=== PATIENT | female | born 1960 | race Caucasian/White ===

== ENCOUNTER 2016-04-18 10:45 | Day surgery (SDC) | payer OTHER ==
[2014-10-04 17:53] VITALS: BP 132/84
[~2016-04-18 10:45] MED LIST: LACTATED RINGERS 1,000 ML IV.SOLN IV ONE; LIDOCAINE HCL/PF 2% 100 MG/5 ML VIAL IJ ONE; PROPOFOL 200 MG/20 ML VIAL IV ONE; SALINE FLUSH 10 ML DISP.SYRIN IVF ONE
--- NOTE | 2016-04-18 12:39 | GI Report ---
REFERRING PHYSICIAN: Dr. Lolita May AERODYNAMICS ENGINEER: Roderick Gauthier MD PROCEDURE MEDICATION: Propofol as per anesthesia. INDICATIONS: This 56-year-old woman was referred for a screening. This is her first colonoscopy. She denies any changes in her stools or blood in the stool. She denies a family history of colorectal cancer. PROCEDURE PERFORMED: Colonoscopy. PROCEDURE: An Olympus video colonoscope was advanced into the rectum. She did have a fairly atonic redundant colon. It took some nurse compression and reducing loops to finally reach the cecum. The appendiceal orifice and terminal ileum were normal. On slow withdrawal, the cecum, ascending colon, and transverse colon with no obvious intraluminal lesions noted but a lot of redundancy. Descending colon and sigmoid colon, again, a lot of redundancy, no obvious intraluminal lesions noted. Retroflexion of the rectum was normal. The patient tolerated the procedure well. FINDINGS: An atonic redundant colon, but otherwise normal to the cecum. RECOMMENDATIONS: 1. I would increase fiber or supplements, such as Benefiber, Metamucil, etc. or MiraLAX if needed. 2. Consider re-looking at her colon in 10 years, sooner if clinically indicated. cc: Dr. Lolita BLACK
== END 2016-04-18 10:46 ==
LOC: OPSURG 10:45
PROVIDERS: ATTEND Internal Medicine Gastroenterology
DX: Z12.11 Encounter for screening for malignant neoplasm of colon (principal)
CPT/HCPCS: J2001; J2704; J7120; G0121; S1016

== ENCOUNTER 2016-07-04 17:10 | Outpatient (CLI) | payer OTHER ==
[2014-10-04 17:53] VITALS: BP 132/84
[2016-07-04 17:48] LABS: BASOPHILS % 0.4 (0.0-1.5); EOSINOPHILS % 1.3 % (0.0-6.8); MEAN CORPUSCULAR HEMOGLOBIN 30.9 pg (28.0-34.0); MEAN CORPUSCULAR VOLUME 95.3 fl (80.0-100.0); MONOCYTES % 3.8 % (0.0-11.0); NEUTROPHILS # 3.7 # k/uL (1.4-7.7)
[2016-07-04 18:05] LABS: eGFR (African) > 60; eGFR (Non-African) > 60
--- NOTE | 2016-07-04 18:36 | Diagnostic Imaging Report ---
[facility] [address] [facility].[address] [address] Report Submission Date: Jul 04, 2016 6:29:08 PM CDT Patient Study Name: WEI MILLS Date: Jul 04, 2016 6:07:27 PM CDT Modality Type: CT\SR Gender: F Description: CT ABD & PELVIS W/ CON : 60 Institution: [facility] Physician: ERNIE PERKINS - GARRY Computed tomography of the abdomen and pelvis with contrast History: Right lower quadrant pain for 2 days Findings: Transverse abdomen and pelvis sections are obtained after 89 mL intravenous omnipaque 350. The gallbladder is partially contracted. The liver, lung bases, spleen, pancreas , adrenals kidneys, great vessels, and mesenteric structures are normal. Moderate colonic stool is present. Bilateral L5 pars defects and grade I L5/S1 spondylolisthesis are observed. Bowel loops exhibit normal caliber and wall thickness. No acute abdomen abnormality is observed. Lumbar facet arthropathy is noted. Pelvic sections reveal moderate sigmoid colon stool, hysterectomy, partial urinary bladder decompression, and normal appendix. No acute pelvic abnormality is observed. Impression: 1. Mild constipation. 2. Normal appendix. 3. Chronic grade I lytic L5/S1 spondylolisthesis. 4. Hysterectomy. 5. No acute inflammatory process observed. Electronically signed on Jul 04, 2016 6:29:08 PM CDT by: Jorge Alberto BLACK
== END 2016-07-04 17:11 ==
LOC: RAD 17:10
PROVIDERS: ATTEND Family Medicine
DX: R10.31 Right lower quadrant pain (principal)
CPT/HCPCS: 74177; 80053; 82150; 85025; Q9966

== ENCOUNTER 2016-09-12 10:34 | Outpatient (CLI) | payer OTHER ==
[2014-10-04 17:53] VITALS: BP 132/84
--- NOTE | 2016-09-12 11:38 | Diagnostic Imaging Report ---
[facility] [address] [facility].[address] [address] Report Submission Date: Sep 12, 2016 11:32:51 AM CDT Patient Study Name: WEI MILLS Date: Sep 12, 2016 10:46:56 AM CDT Modality Type: CR Gender: F Description: LOWER EXTREMITY : 60 Institution: [facility] Physician: DIEGO BELL - OP 3 total views of both knees History: BILATERAL STANDING KNEES. PAIN WORSE IN RIGHT KNEE. PAIN WHEN WALKING, ESPECIALLY GOING UP AND DOWN STAIRS The of the findings: Comparison study dated November 18, 2014 No evidence of acute fracture or dislocation both knees. Joint spaces are preserved No suprapatellar effusion. Impression: No evidence of acute fracture or dislocation. No periosteal reaction Joint spaces are preserved. No suprapatellar effusion. Electronically signed on Sep 12, 2016 11:32:51 AM CDT by: Katia BLACK
== END 2016-09-12 10:35 ==
LOC: RAD 10:34
PROVIDERS: ATTEND Family Medicine
DX: M25.561 Pain in right knee (principal)

== ENCOUNTER 2017-04-09 19:44 | Emergency (ER) | payer OTHER ==
[2017-04-09] MEDS ORDERED: SULFAMETHOXAZOLE/TRIMETHOPRIM 1 EACH TABLET PO ONE (20:11)
--- NOTE | 2017-04-09 20:26 | ED Physician Documentation ---
General Adult - HISTORIAN Historian: patient - HPI Stated Complaint: sciatica pain Chief Complaint: General Adult Onset: hours Timing: still present Severity: moderate Further Comments: yes (Pt is a 57 yo female with hx back pain/sciatica. Pt has had recurrent episodes of this. Pt did not have an acute event, but pain has been increasing in the R side of her lower back over the course of the day. Pt has not taken any meds at home for this, although she has Meloxicam other meds.) - ROS CONST: no problems EYES/ENT: none CVS/RESP: none GI/: none MS/SKIN/LYMPH: other (back pain) - PAST HX Past History: other (sciatica, migaine) Surgeries/Procedures: other (ortho surgery) Allergies/Adverse Reactions: Allergies Allergy/AdvReac Type Severity Reaction Status Date / Time No Known Allergies Allergy Verified 04/09/17 19:57 Home Medications: Ambulatory Orders Medication Instructions Recorded Topiramate 50 mg PO BID 10/04/14 Rizatriptan Benzoate [Rizatriptan] 10 mg PO 1T PRN u2 03/20/15 Amitriptyline HCl 50 mg PO QDAY 04/09/17 - SOCIAL HX Smoking History: non-smoker - FAMILY HX Family History: No - VITAL SIGNS Vital Signs: Vital Signs Temp Pulse Resp BP Pulse Ox 88 16 129/84 99 04/09/17 19:45 04/09/17 19:45 04/09/17 19:45 04/09/17 19:45 - REVIEWED ASSESSMENTS Nursing Assessment Reviewed: Yes Vitals Reviewed: Yes Progress - Progress Progress: Toradol 60 mg IM Diazepam 10 mg IM improved Rx Flexeril 10 mg. 1 po q 8 h prn # 30. Continue other home meds. ED Results Lab/Radiology - Orders Orders: ED Orders Category Date Time Status Diazepam [Valium] Med 04/09/17 20:25 Discontinued 10 mg IM NOW ONE Ketorolac Tromethamine [Toradol] Med 04/09/17 20:25 Discontinued 60 mg IM NOW ONE Sulfamethoxazole/Trimethoprim [Bactrim Ds] Med 04/09/17 20:11 Discontinued 1 each PO NOW ONE General Adult Physical Exam - PHYSICAL EXAM GENERAL APPEARANCE: moderate distress NECK: normal inspection, supple RESPIRATORY: no resp distress, chest non-tender, breath sounds normal CVS: reg rate & rhythm, heart sounds normal BACK: normal inspection, no CVA tenderness, other (tenderness, muscle spasm, R lower back; no central pain (no pain over spine).) SKIN: warm/dry, normal color EXTREMITIES: non-tender, normal range of motion NEURO: oriented X3, motor nml, sensation nml, other (DTR's wnl) Discharge Clincal Impression: back pain Referrals: Lolita May MD [Primary Care Provider] - Condition: Good Disposition: 01 HOME, SELF-CARE Decision to Admit: NO Decision Time: 22:00
[2017-04-09] MEDS: KETOROLAC TROMETHAMINE 60 MG/2 ML VIAL IM ONE (20:40)
[2017-04-09] MEDS: (BACK ORDERED; DO NOT ORDER) DIAZEPAM 5 MG/ML DISP.SYRIN IM ONE (21:15)
[2017-04-09 22:48] VITALS: BP 133/77
== END 2017-04-09 22:00 | disposition home or self-care (01) ==
LOC: ED 19:44
DX: M54.30 Sciatica, unspecified side (principal)
CPT/HCPCS: 96372; 99283; J1885; J3360

== ENCOUNTER 2017-06-09 18:52 | Emergency (ER) | payer OTHER ==
--- NOTE | 2017-06-09 18:57 | ED Physician Documentation ---
Chest Pain - HISTORIAN Historian: patient - HPI Stated Complaint: cough and chest pain/ low grade fever Chief Complaint: General Adult Onset: days ago (2) Timing: other (started two days ago on and off with cough then resulting in chest pain ) Duration: waxing, waning Last known Well Date: 06/05/17 Last Known Well Time: 08:00 Last known Well Code/Unknown Code: Unknown Context: other (when she lays down the cough seems worse ) Severity: mild Quality: other (just a "pain" after coughing) Chest Pain Radiation: no radiation Chest Pain Signs/Symptoms: diaphoresis, dyspnea (after cough ). denies: nausea , vomiting, dizziness, palpitations Worsened By: other (cough ) Relieved By: nothing Further Comments: yes (She states there has been significant illness at work. She notes two days ago she started to have a cough and now feels she has a fever at work was 99.9. She has had congestion. She has not tried any OTC meds for this. She does not smoke although does smoke in the house.) - ROS CONST: fever MS/LYMPH: none GI/: none EYES/ENT: none SKIN/ENDO: denies: rash NEURO/PSYCH: headache (she has had a migraine for the last two days ) - PAST HX HI risk factors: other (migraine and leg pain ) DVT/PE Risk Factors: none TAD/AAA risk factors: none Neuro deficit: none GI disease: none Lung disease: none Surgeries/Procedures: hysterectomy Immunizations: UTD Allergies/Adverse Reactions: Allergies Allergy/AdvReac Type Severity Reaction Status Date / Time No Known Allergies Allergy Verified 04/09/17 19:57 Home Medications: Ambulatory Orders Medication Instructions Recorded Topiramate 50 mg PO BID 10/04/14 Rizatriptan Benzoate [Rizatriptan] 10 mg PO 1T PRN u2 03/20/15 Amitriptyline HCl 50 mg PO QDAY 04/09/17 Celecoxib [Celecoxib] 100 mg PO BID 06/09/17 - SOCIAL HX Smoking History: secondhand Alcohol Use: none Drug Use: none - FAMILY HX Family HX: none - VITAL SIGNS Vital Signs: Vital Signs Temp Pulse Resp BP Pulse Ox 133/77 04/09/17 22:00 - REVIEWED ASSESSMENTS Nursing Assessment Reviewed: Yes Vitals Reviewed: Yes Progress - Progress Progress: 1957: resting quietly DG ED Results Lab/Radiology - Radiology Radiology Impressions: Single frontal view of the chest History: PT STATES COUGH, CHEST PAIN FOR 1 WEEK No similar comparison studies Heart is normal in size Prominence of the left hilum may be secondary to patient rotation versus lymph nodes. No obvious focal consolidation, pleural effusion or pneumothorax is identified. No acute osseous pathology. Impression: No focal consolidation or pleural effusion Electronically signed on Jun 09, 2017 7:20:38 PM CDT by: Katia Loving Chest Pain Physical Exam - EXAM General Appearance: no acute distress, alert EENT: eye inspection normal, ENT inspection normal, OTTONIEL Neck: nml inspection. No: JVD present Respiratory: no resp. distress, chest non-tender, decreased air movement (RUL ) CVS: reg. rate & rhythm, no murmur, no gallop Abdomen: soft, normal bowel sounds Skin: warm/dry, normal color Extremities: non-tender, normal range of motion, no evidence of injury, no edema Neuro: oriented X3, CN's nml as tested, motor nml, sensation nml, mood/affect nml Discharge Clincal Impression: Viral respiratory illness Referrals: Lolita May MD [Primary Care Provider] - 2 Days Comments: 1. Tussin AC take 1 tsp every 4-6 hours as needed for cough x 7 days 2. Medrol Dose pack 4 mg Take as directed 3. Increase fluids 4. Tylenol or Ibuprofen as needed for fever or headache 5. Rest 6. Return to ER for any concerns Condition: Stable Disposition: 01 HOME, SELF-CARE Decision to Admit: NO Date of Decison to Admit: 06/09/17 Decision Time: 20:18
[2017-06-09] MEDS: ASPIRIN 81 MG CHEW TAB PO ONE (19:10)
[2017-06-09 19:33] LABS: BASOPHILS % 0.4 (0.0-1.5); EOSINOPHILS % 2.4 % (0.0-6.8); MEAN CORPUSCULAR HEMOGLOBIN 30.9 pg (28.0-34.0); MEAN CORPUSCULAR VOLUME 94.7 fl (80.0-100.0); MONOCYTES % 5.1 % (0.0-11.0); NEUTROPHILS # 2.3 # k/uL (1.4-7.7)
[2017-06-09 19:37] LABS: eGFR (African) > 60; eGFR (Non-African) > 60
[2017-06-09 21:52] VITALS: BP 150/88
--- NOTE | 2017-06-10 07:01 | Diagnostic Imaging Report ---
[facility] [address] [facility].[address] [address] Report Submission Date: Jun 09, 2017 7:20:38 PM CDT Patient Study Name: WEI MILLS Date: Jun 09, 2017 7:06:11 PM CDT Modality Type: DX Gender: F Description: CHEST : 60 Institution: [facility] Physician: CYNDI ISBELL Single frontal view of the chest History: PT STATES COUGH, CHEST PAIN FOR 1 WEEK No similar comparison studies Heart is normal in size Prominence of the left hilum may be secondary to patient rotation versus lymph nodes. No obvious focal consolidation, pleural effusion or pneumothorax is identified. No acute osseous pathology. Impression: No focal consolidation or pleural effusion Electronically signed on Jun 09, 2017 7:20:38 PM CDT by: Katia BLACK
== END 2017-06-09 20:20 | disposition home or self-care (01) ==
LOC: ED 18:52
DX: B34.8 Other viral infections of unspecified site (principal); R07.89 Other chest pain
CPT/HCPCS: 71045; 80053; 82550; 82553; 84484; 85025; 99283; S1016

== ENCOUNTER 2017-12-23 12:22 | Emergency (ER) | payer SELFPAY ==
[2017-12-23] MEDS ORDERED: DIPH,PERTUSS(ACELL),TET VAC/PF 0.5 ML DISP.SYRIN IM ONE (12:35)
--- NOTE | 2017-12-23 12:45 | ED Physician Documentation ---
General Adult - HPI Stated Complaint: laceration Chief Complaint: Laceration/Recheck/Suture Additional Information: Patient presents to ED after cutting her right middle finger on a knife while washing dishes at work. Patient unsure of last tetanus vaccination Onset: hours (1) Timing: still present Severity: mild Further Comments: no - ROS CONST: no problems EYES/ENT: none CVS/RESP: none GI/: none MS/SKIN/LYMPH: none - PAST HX Past History: none Other History: none Surgeries/Procedures: none Immunizations: denies: tetanus Allergies/Adverse Reactions: Allergies Allergy/AdvReac Type Severity Reaction Status Date / Time No Known Drug Allergies Allergy Verified 12/23/17 12:35 Home Medications: Ambulatory Orders Medication Instructions Recorded Topiramate 50 mg PO BID 10/04/14 Rizatriptan Benzoate [Rizatriptan] 10 mg PO 1T PRN u2 03/20/15 Amitriptyline HCl 50 mg PO QDAY 04/09/17 Celecoxib 100 mg PO BID 06/09/17 - SOCIAL HX Smoking History: non-smoker Alcohol Use: none Drug Use: none - FAMILY HX Family History: No - VITAL SIGNS Vital Signs: Vital Signs Temp Pulse Resp BP Pulse Ox 98.0 F 73 16 112/72 97 12/23/17 13:01 12/23/17 13:01 12/23/17 13:01 12/23/17 13:01 12/23/17 13:01 - REVIEWED ASSESSMENTS Nursing Assessment Reviewed: Yes Vitals Reviewed: Yes Procedures Wound Location: upper extremity Wound Length: 3mm Wound's Depth, Shape: superficial Betadine Prep?: No Wound Debrided: minimal Wound Repaired With: Dermabond Sterile Dressing Applied?: Yes Splint Applied?: No Sling Applied?: No ED Results Lab/Radiology - Orders Orders: ED Orders Category Date Time Status Skin Adhesive NOW Care 12/23/17 13:00 Ordered Diph,Pertuss(Acell),Tet Vac/Pf [Adacel] Med 12/23/17 12:35 Discontinued 0.5 ml IM .ONCE ONE General Adult Physical Exam - PHYSICAL EXAM GENERAL APPEARANCE: no distress EENT: OTTONIEL NECK: supple RESPIRATORY: no resp distress, breath sounds normal CVS: reg rate & rhythm ABDOMEN: soft BACK: no CVA tenderness SKIN: warm/dry EXTREMITIES: non-tender, other (3 mm superficial laceration to left middle finger) NEURO: oriented X3 Discharge Clincal Impression: Laceration Referrals: Lolita May MD [Primary Care Provider] - 2 Days Condition: Good Disposition: 01 HOME, SELF-CARE Decision to Admit: NO (t) Date of Decison to Admit: 12/23/17 Decision Time: 12:56
[2017-12-23 13:02] VITALS: BP 112/72
== END 2017-12-23 13:01 | disposition home or self-care (01) ==
LOC: ED 12:22
DX: S61.213A Laceration without foreign body of left middle finger without damage to nail, initial encounter (principal); W26.8XXA Contact with other sharp object(s), not elsewhere classified, initial encounter; Y92.010 Kitchen of single-family (private) house as the place of occurrence of the external cause; Y93.G1 Activity, food preparation and clean up; Y99.9 Unspecified external cause status
CPT/HCPCS: 12001; 90471; 90715; 99282

== ENCOUNTER 2018-01-08 09:45 | Outpatient (CLI) | payer OTHER ==
--- NOTE | 2018-01-08 13:50 | Diagnostic Imaging Report ---
MEHDI MORENO [facility] [address] [facility] [address] [address] Report Submission Date: Jan 08, 2018 10:25:38 AM CDT Patient Study Name: WEI MILLS Date: Jan 08, 2018 9:45:37 AM CDT Modality Type: DX Gender: F Description: LOWER EXTREMITY : 60 Institution: [facility] Physician: MEHDI MORENO Examination: Plain film left foot History: Painful corn between 1st and 2nd toes with bunion PT STATES PAIN IN FIRST AND SECOND DIGIT OF LEFT FOOT X 2 MONTHS. PT STATES CORN WAS SHAVED OFF BOTH TOES TODAY (Hx) Findings: 3 views of the left foot demonstrates articular degenerative changes. No fracture or dislocation. Inferior calcaneal spur. No soft tissue swelling. No joint effusion. Impression: Degenerative changes. No acute osseous process. Electronically signed on Jan 08, 2018 10:25:38 AM CDT by: Neymar BLACK
== END 2018-01-08 09:55 ==
LOC: RAD 09:45
PROVIDERS: ATTEND Podiatrist Foot & Ankle Surgery
DX: M20.12 Hallux valgus (acquired), left foot (principal); M89.8X7 Other specified disorders of bone, ankle and foot; L84 Corns and callosities
CPT/HCPCS: 73630

== ENCOUNTER 2018-01-11 10:34 | Outpatient (CLI) | payer OTHER ==
[2018-01-11 11:08] LABS: EOSINOPHILS % 2.5 % (0.0-6.8); MEAN CORPUSCULAR HEMOGLOBIN 30.3 pg (28.0-34.0); MONOCYTES % 6.6 % (0.0-11.0)
[2018-01-11 11:09] LABS: BASOPHILS % 0.3 (0.0-1.5); NEUTROPHILS # 2.7 # k/uL (1.4-7.7)
== END 2018-01-11 10:36 ==
LOC: RT 10:34
PROVIDERS: ATTEND Podiatrist Foot & Ankle Surgery
DX: Z01.818 Encounter for other preprocedural examination (principal)
CPT/HCPCS: 36415; 80048; 85025

== ENCOUNTER 2018-02-20 13:39 | Emergency (ER) | payer OTHER ==
--- NOTE | 2018-02-20 14:02 | ED Physician Documentation ---
General Adult - HISTORIAN Historian: patient - HPI Stated Complaint: Finger lac Chief Complaint: Laceration/Recheck/Suture Additional Information: Patient presents to ED after cutting her left ring finger yesterday while cutting onions. She states a bandage was placed yesterday and today when she took the bandage off there was blood on the bandage. She states the laceration is not healing and the bleeding in uncontrolled. Onset: hours (24) Timing: still present Severity: mild - ROS CONST: no problems EYES/ENT: none CVS/RESP: none GI/: none MS/SKIN/LYMPH: none - PAST HX Past History: none Other History: none Allergies/Adverse Reactions: Allergies Allergy/AdvReac Type Severity Reaction Status Date / Time No Known Drug Allergies Allergy Verified 12/23/17 12:35 Home Medications: Ambulatory Orders Medication Instructions Recorded Topiramate 50 mg PO BID 10/04/14 Rizatriptan Benzoate [Rizatriptan] 10 mg PO 1T PRN u2 03/20/15 Amitriptyline HCl 50 mg PO QDAY 04/09/17 Celecoxib 100 mg PO BID 06/09/17 - SOCIAL HX Smoking History: non-smoker Alcohol Use: none Drug Use: none - FAMILY HX Family History: No - VITAL SIGNS Vital Signs: Vital Signs Temp Pulse Resp BP Pulse Ox 87 15 99/74 96 02/20/18 13:45 02/20/18 13:45 02/20/18 13:45 02/20/18 13:45 - REVIEWED ASSESSMENTS Nursing Assessment Reviewed: Yes Vitals Reviewed: Yes Progress - Progress Progress: No evidence of bleeding. Will apply dressing and discharge. Patient had tetanus vaccine on 12/23/17. General Adult Physical Exam - PHYSICAL EXAM GENERAL APPEARANCE: no distress EENT: OTTONIEL NECK: normal inspection, supple RESPIRATORY: no resp distress, breath sounds normal CVS: reg rate & rhythm, heart sounds normal ABDOMEN: soft, normal bowel sounds SKIN: warm/dry EXTREMITIES: non-tender, other (mm superficial laceratin to tip of left ring finger. No bleeding. ) NEURO: oriented X3, motor nml, sensation nml Discharge Clincal Impression: Laceration Referrals: Lolita May MD [Primary Care Provider] - 2 Days Additional Instructions: 1. Keep wound clean and dry 2. Apply triple antibiotic ointment twice daily 3. Report any signs of infection such as redness, swelling or heat to your PCP 4. Follow up with PCP within 1 week. Condition: Stable Disposition: 01 HOME, SELF-CARE Decision to Admit: NO Date of Decison to Admit: 02/20/18 Decision Time: 14:06
[2018-02-20 14:27] VITALS: BP 99/74
== END 2018-02-20 14:15 | disposition home or self-care (01) ==
LOC: ED 13:39
DX: S61.215A Laceration without foreign body of left ring finger without damage to nail, initial encounter (principal); W45.8XXA Other foreign body or object entering through skin, initial encounter; Y93.G1 Activity, food preparation and clean up; Y92.9 Unspecified place or not applicable
CPT/HCPCS: 99281; 99282

== ENCOUNTER 2018-03-15 23:08 | Emergency (ER) | payer OTHER ==
[2018-03-15] MEDS ORDERED: ASPIRIN 81 MG CHEW TAB PO ONE (23:24)
--- NOTE | 2018-03-15 23:38 | ED Physician Documentation ---
General Adult - HISTORIAN Historian: patient - HPI Stated Complaint: Chest pains Chief Complaint: General Adult Additional Information: Sharp mid CP since 2129. Worse with deep breath or lying flat. Continuous now for 2 hours. Has had this before, but never had it investigated. Went away on its own. Has migraines and takes amitriptyline in order to fall asleep. Has to take migraine prevention med before supper. Says she is under a lot of stress. No treatment attempted. - ROS CONST: no problems - PAST HX Past History: other ("bad back;" B12 supplement) Allergies/Adverse Reactions: Allergies Allergy/AdvReac Type Severity Reaction Status Date / Time No Known Drug Allergies Allergy Verified 03/15/18 23:26 Home Medications: Ambulatory Orders Medication Instructions Recorded Topiramate 50 mg PO BID 10/04/14 Rizatriptan Benzoate [Rizatriptan] 10 mg PO 1T PRN u2 03/20/15 Amitriptyline HCl 50 mg PO QDAY 04/09/17 Nitrofurantoin Monohyd/M-Cryst 100 mg PO Q12 #14 capsule 03/16/18 [Macrobid 100 mg Capsule] - SOCIAL HX Smoking History: other (2nd hand, smokes) Alcohol Use: none Drug Use: none - FAMILY HX Family History: Yes (M with heart attack at unknown age) - VITAL SIGNS Vital Signs: Vital Signs Temp Pulse Resp BP Pulse Ox 81 24 160/92 100 03/15/18 23:08 03/15/18 23:08 03/15/18 23:08 03/15/18 23:08 - REVIEWED ASSESSMENTS Nursing Assessment Reviewed: Yes Vitals Reviewed: Yes Progress - Progress Progress: Report Submission Date: Mar 15, 2018 11:53:42 PM REFRIGERATION INSULATOR Patient Study Name: WEI MILLS Date: Mar 15, 2018 11:29:59 PM REFRIGERATION INSULATOR Modality Type: DX Gender: F Description: CHEST : 60 Institution: [facility] Physician: ERICA LUNSFORD - ITZEL Chest two views History: Chest pain Findings: The lungs are mildly hyperinflated without infiltrate or pleural effusion. Heart size and pulmonary vascularity are normal. Osseous structures are intact. Impression: Mild hyperinflation, new since 06/09/2017. Electronically signed on Mar 15, 2018 11:53:42 PM REFRIGERATION INSULATOR by: Jorge Alberto Gudino EKG: sinus rhythm, 77 BPM, no acute changes Serial Trop 1's x 2 negative, EKG unremarkable. Other labs and CXR reassuring. ED Results Lab/Radiology - Orders Orders: ED Orders Category Date Time Status Continuous EKG monitoring Q1H Care 03/15/18 23:25 Active CHEST 2VIEW [RAD] Stat Exams 03/15/18 Ordered CBC/PLATELET/DIFF Routine Lab 03/15/18 23:25 Received CMP Routine Lab 03/15/18 23:25 Received TROPONIN I (cTnI) Stat Lab 03/15/18 Ordered URINALYSIS Routine Lab 03/15/18 Ordered Aspirin Med 03/15/18 23:24 Discontinued 324 mg PO NOW ONE EKG WITH COMPARISON Stat Ther 03/15/18 Ordered General Adult Physical Exam - PHYSICAL EXAM GENERAL APPEARANCE: moderate distress (quite anxious; very talkative, concerned about her age) EENT: eye inspection normal, ENT inspection normal, pharynx normal (Mallampati 2 ) NECK: normal inspection, supple RESPIRATORY: no resp distress, other (palpation sternum and parasternal areas reproduces her pain) CVS: reg rate & rhythm, heart sounds normal, no murmur ABDOMEN: soft, normal bowel sounds, non-tender BACK: normal inspection, no CVA tenderness SKIN: warm/dry, normal color EXTREMITIES: non-tender, no evidence of injury NEURO: CN's nml as tested, motor nml, sensation nml Discharge Clincal Impression: Chest wall pain Urinary tract infection Qualifiers: Urinary tract infection type: acute cystitis Hematuria presence: without hematuria Qualified Code(s): N30.00 - Acute cystitis without hematuria Prescriptions: Nitrofurantoin Monohyd/M-Cryst [Macrobid 100 mg Capsule] 100 mg PO Q12 #14 capsule Referrals: Lolita May MD [Primary Care Provider] - 2 Days Condition: Good Disposition: 01 HOME, SELF-CARE Decision to Admit: NO Decision Time: 02:15
[2018-03-15 23:46] LABS: BASOPHILS % 0.5 (0.0-1.5); EOSINOPHILS % 2.7 % (0.0-6.8); MONOCYTES % 10.9 % (0.0-11.0); NEUTROPHILS # 1.8 # k/uL (1.4-7.7)
[2018-03-15 23:50] LABS: eGFR (Non-African) > 60
[2018-03-16] MEDS ORDERED: NITROFURANTOIN MONO/MACRO 100 MG CAPSULE PO ONE (00:36)
[2018-03-16 02:46] VITALS: BP 142/78
--- NOTE | 2018-03-16 06:30 | Diagnostic Imaging Report ---
ERICA LUNSFORD [facility] [address] [facility] [address] [address] Report Submission Date: Mar 15, 2018 11:53:42 PM MANAGER HARDWARE Patient Study Name: WEI MILLS Date: Mar 15, 2018 11:29:59 PM MANAGER HARDWARE Modality Type: DX Gender: F Description: CHEST : 60 Institution: [facility] Physician: ERICA LUNSFORD Chest two views History: Chest pain Findings: The lungs are mildly hyperinflated without infiltrate or pleural effusion. Heart size and pulmonary vascularity are normal. Osseous structures are intact. Impression: Mild hyperinflation, new since 06/09/2017. Electronically signed on Mar 15, 2018 11:53:42 PM MANAGER HARDWARE by: Jorge Alberto BLACK
[2018-03-16 11:08] LABS: APPEARANCE,URINE CLEAR (CLEAR); COLOR,URINE YELLOW (YELLOW); OCCULT BLOOD,URINE NEGATIVE (NEGATIVE); PH URINE 8.5 (5.0 - 8.0)
== END 2018-03-16 02:20 | disposition home or self-care (01) ==
LOC: ED 23:08
DX: R07.89 Other chest pain (principal); N30.00 Acute cystitis without hematuria
CPT/HCPCS: 36415; 71046; 80053; 81002; 84484; 85025; 87086; 99282; 99285; S1016

== ENCOUNTER 2018-06-13 14:15 | Outpatient (CLI) | payer OTHER ==
--- NOTE | 2018-06-14 05:30 | Diagnostic Imaging Report ---
MEHDI MORENO [facility] [address] [facility].[address] [address] Report Submission Date: Jun 13, 2018 2:45:58 PM CDT Patient Study Name: WEI MILLS Date: Jun 13, 2018 2:22:36 PM CDT Modality Type: DX Gender: F Description: TOES 2 VIEWS OR MORE : 60 Institution: [facility] Physician: MEHDI MORENO Examination: Plain film toe History: LEFT 1ST DIGIT, PAIN/SWELLING/CONTUSION OF LEFT 1ST DIGIT AFTER DROPPING A TRAILER ON FOOT 3 DAYS AGO Findings: 3 views of the left 1st digit demonstrates cortical irregularities involving the distal phalanx. Remaining cortical margins within normal limits. No soft tissue foreign body. Impression: 1st digit distal phalanx fracture. Electronically signed on Jun 13, 2018 2:45:58 PM CDT by: Neymar BLACK
== END 2018-06-13 14:17 ==
LOC: RAD 14:15
PROVIDERS: ATTEND Podiatrist Foot & Ankle Surgery
DX: S92.422A Displaced fracture of distal phalanx of left great toe, initial encounter for closed fracture (principal); S99.922A Unspecified injury of left foot, initial encounter; X58.XXXA Exposure to other specified factors, initial encounter; Y93.9 Activity, unspecified; Y92.9 Unspecified place or not applicable
CPT/HCPCS: 73660

== ENCOUNTER 2018-06-22 11:56 | Outpatient (CLI) | payer OTHER ==
--- NOTE | 2018-06-26 15:06 | OP Clinic Progress Note ---
SUBJECTIVE: Nae Shetty is a 58-year-old female who presented to the clinic today for follow-up of a left great toe wound. The patient had sustained an open fracture that was revealed upon removal of a left great toenail recently in early June to explore if there was an actual open fracture underneath the nail. She had lacerated it and the laceration was closed with Vicryl. She presented today for follow-up of the fracture as well as the toe wound. The patient does not admit to any issues or concerns except for the fact she noted at the very end of her visit that she stopped her doxycycline antibiotic about 2 days ago and stated that she still has half the bottle left. She states she stopped it because it was interfering and causing migraines. She states that she was taking it with food. The patient does not admit to any fevers, chills, nausea, vomiting, shortness of breath or chest pain. OBJECTIVE: Vitals: Temperature 98.2 degrees Fahrenheit, heart rate 81, respiration rate 16, blood pressure 129/67. O2 saturation is 98% on room air. Vascular: 2+ DP and PT pulses, left foot. Capillary refill time is less than 3 seconds to the toes of the left foot. No edema is noted, left foot. Dermatologic: The left great toe does not have any obvious ecchymosis at this time. There is no purulence, malodor or abnormal drainage or erythema noted. There is no evidence of maceration at this time, either. The nail bed laceration appears to be healing and the Vicryl is beginning to heal into the wound. The Vicryl 3 stitches were removed today and it appears that there is still a very small laceration still open centrally. It appears to be better than it was previously, however. I do not see any other concerning things on the left foot and I do not believe it shows any signs of infection at this time. Musculoskeletal: There is pain on palpation over the left great toenail bed still at this time. There are no other vascular abnormalities noted, left foot. The left great toe appears to be in its normal position. Neurologic: Light touch sensation is intact to the toes, left foot. ASSESSMENT AND PLAN: 1. Injury of left great toe, subsequent encounter; S99.922D. 2. Open nondisplaced fracture of the distal phalanx of the left great toe with routine healing; S92.425D. 3. Laceration of the nail bed of toe, subsequent encounter; S91.219D. PROCEDURE #1: Upon realizing that the Vicryl stitches were beginning to heal into the wound I decided to go ahead and remove the stitches at this time. This does reveal a very small central opening of the nail bed laceration still. It seems to have less depth, however. The procedure was performed well with removal of the stitches and it was dressed with triple antibiotic ointment, 2x2 gauze x2, 2-inch Matteo and 1-inch Coban beginning on the toe and extending onto the distal forefoot to hold it on well. The patient tolerated the procedure well. It should be noted that the rest of the left great toenail bed appears to be healing beautifully and is nearing complete dryness except for the small area near that laceration and proximal lateral edge of the nail bed. The dressings are to remain clean, dry and intact. The patient was explained again regarding the importance of not going back to work until the skin is completely healed. 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 She will not be able to come out of the surgical shoe until her hallux fracture is healed. She refused x-rays today and we will obtain x-rays on her next visit on Monday, next week. We will do this to make sure she is getting appropriate healing of that left great toe fracture. Due to the fact that the patient stopped her doxycycline a couple days ago and has not even finished half the bottle it sounds like, the doxycycline is being stopped as it is causing migraine issues and we are switching her to 2 other antibiotics to get good coverage as she had an open fracture. She was placed on clindamycin 300 mg #30, 1 by mouth 3 times daily for 10 days as well as ciprofloxacin 500 mg #20, 1 by mouth twice daily x10 days. This is being done in order for appropriate prophylaxis as she had an open great toe fracture. I believe that after this she will not need any other antibiotics. The patient understands that is why we are doing this and she will get her medicine back at home. The patient states that she is having a difficult time in the surgical shoe and that it is painful and crosses over right on her toe. We showed her a new surgical shoe and she understands that insurance likely will not cover this and she will likely have to pay around $40 or $50 for it to the outside company dispensing it through us. She understands this and signed paperwork and received a new surgical shoe that she states feels much better. She has no further concerns or complaints at this time and understands that we will see her next week on Monday, June 27 in the outpatient clinic for follow-up and after that we will see her on July 09 in the [facility] clinic. The patient has no other concerns or complaints and we will see her at that time. Trace Damon D.P.M. (Dictated/Not Signed) Kiana Job #: [id number] MTDD
== END 2018-06-22 13:12 ==
LOC: POD 11:56
PROVIDERS: ATTEND Podiatrist Foot & Ankle Surgery
DX: Z48.02 Encounter for removal of sutures (principal); S99.922D Unspecified injury of left foot, subsequent encounter; S92.425D Nondisplaced fracture of distal phalanx of left great toe, subsequent encounter for fracture with routine healing; S91.21 Laceration without foreign body of toe with damage to nail
CPT/HCPCS: A4554

== ENCOUNTER 2018-06-27 11:01 | Outpatient (CLI) | payer OTHER ==
--- NOTE | 2018-06-27 20:44 | Diagnostic Imaging Report ---
MEHDI MORENO [facility] [id number] [facility] [id number] Report Submission Date: Jun 27, 2018 5:02:18 PM CDT Patient Study Name: WEI MILLS Date: Jun 27, 2018 12:04:37 PM CDT Modality Type: DX Gender: F Description: TOES 2 VIEWS OR MORE : 60 Institution: [facility] Physician: MEHDI MORENO HISTORY: 58-year-old female with left great toe fracture, follow-up COMPARISON: Radiographs dated 06/13/2018. TECHNIQUE: 3 views of the left great toe were performed. IMPRESSION: 1. Mildly displaced fracture of the left great toe distal phalanx is re- identified, essentially stable in appearance versus radiographs dated 06/13/2018. 2. No new fractures are identified about the left great toe, second toe, or 1st-2nd metatarsal bones. Electronically signed on Jun 27, 2018 5:02:18 PM CDT by: Markos BLACK
--- NOTE | 2018-06-30 20:04 | OP Clinic Progress Note ---
SUBJECTIVE: Nae Shetty is a 58-year-old female who presented to the clinic today for follow-up of an injury of the left great toe where she dropped something on her toe creating a fracture of the left great toe distal phalanx as well as a laceration which was found after removing her great toenail recently. She had the laceration repaired with Vicryl which was removed on her most recent visit on Monday. She was encouraged to leave the dressings clean, dry and intact which she did not do. She ended up taking the dressings off I believe a couple days ago and began doing just antibiotic and a Band-Aid. The patient states that her toe is feeling much better and she can move it great and is not having any pain with it at this time. She does not admit to any fevers, chills, nausea, vomiting, shortness of breath or chest pain at this time. She states that she does need to get back to work immediately and that [employer] where she works, is requiring her to come back to work on Monday. This is despite the note that I sent stating that she will be able to return to work on the in a surgical shoe as long as her skin has healed at that time which I am sure it will. OBJECTIVE: Vitals: Temperature 98.5 degrees Fahrenheit, heart rate 90, respiration rate 24, blood pressure 122/70. Pain 0/10. O2 saturation is 95% on room air. Vascular: 2+ DP and PT pulses, left foot. Capillary refill time is less than 3 seconds to the toes of the left foot. No edema is noted, left foot. Dermatologic: The left great toe nail bed is almost completely healed. There is a very small portion that is punctate that may be slightly open. I believe it is fairly well healed, however, but does have a small stable eschar across the area where the laceration had not completely closed last time we saw her and had taken out her stitches. Those stitches were taken out because the Vicryl was beginning to heal into the wound. There is no purulence, malodor, or abnormal drainage of any kind nor erythema noted. Her toe is looking fantastic. There are no other concerning lesions or areas of the left foot. Musculoskeletal: There is significant pain on palpation noted when pressing right over the area of the laceration which is right where her fracture is. She also has significant pain with attempt to see if the fracture still moves. When holding the IPJ still I am able to still slightly feel like I can move her toe at the fracture site. I tested this because she was not admitting to pain anywhere else with palpation until I pressed on that site and moved it. The patient states that she still has pain there upon palpation and range of motion. The toe still is in a fairly normal shape and direction without any change since prior to injury. Neurologic: Light touch sensation is intact to the toes, left foot. ASSESSMENT AND PLAN: 1. Injury of left great toe, subsequent encounter; S99.922D. 2. Open nondisplaced fracture of the distal phalanx of the left great toe with routine healing; S92.425D. 3. Laceration of the nail bed of the toe, subsequent encounter; S91.219D mostly healed. The wound site was left intact as the eschar seems stable. I told the patient I am concerned about how it has not completely healed, and I am worried that as she admits that she will likely get her feet wet at work from wet floors, etc. 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 She understands this but is concerned that [employer] is requiring her to come back to work on Monday. I also told her that her fracture is nowhere near healed at this time. X-rays were obtained today still demonstrating a lucency as well as perhaps slight, mild change in her toe fracture suggesting it may even have shortened slightly in a longitudinal direction. The fracture is essentially nondisplaced overall, however, and is not needing any sort of fixation at this time. I am concerned that it is not healed and needs to be in a surgical shoe when going back to work, even on the , like I recommended. The patient also states that she will not be allowed to do that. She wants a note saying that she is cleared to go back to work anyway and I told her I can send a note but I need to make sure that they know that she is only allowed to go back to work on the once I know that the wound is healed and also that she has to go back in a surgical shoe. I offered to be happy to speak with her employer or someone at work that I need to talk to about this. She stated that she will have her person call me at the outpatient clinic today once she is back in at [facility]. I unfortunately never heard from them and will be leaving town tomorrow and will be unreachable at that time except for emergencies. A note was given to the patient and scanned into the chart stating that she is able to go back on the once her skin has healed completely, as long as it has. She will need to go back with a surgical shoe as the toe fracture will not be healed at that time. The patient was sent home with this and stated she will have someone call me and that never happened, unfortunately, today. I did not hear from anyone. It is now almost 5 p.m. and I have not heard from anyone at this time. The dressings applied consisted of antibiotic ointment and a Band-Aid. The patient is to keep this clean, dry and intact and covered with a Band-Aid. I would like her to make sure this is fully healed before going back to work. I am still awaiting the official read for x-rays obtained today for 3 views of the left great toe. Upon my visual examination and comparing it with the previous exam it almost looks like the lucency is more prominent as well as perhaps slightly displaced compared with last time. I dont believe it is enough to go forward with surgery at this time but I am concerned if she is really using her shoe at all times as instructed. The patient states the pain is greatly improving, however, so clinically I believe she hopefully is doing better and improving. The swelling has definitely come down as well. We will see the patient back the week I get back from vacation. She knows I will be gone the through the . I believe she is coming back to see me on 07/09/18 to make sure she has completely healed. I will ask our nurse to call and clarify that she is on the schedule for the . I will see her next door in the [facility] clinic. I want to make sure is healed before going back to work if possible. Jelani AndrewsP.M. (Dictated/Not Signed) Kiana Job #: [id number] MTDD
== END 2018-06-27 11:03 ==
LOC: POD 11:01
PROVIDERS: ATTEND Podiatrist Foot & Ankle Surgery
DX: S99.922D Unspecified injury of left foot, subsequent encounter (principal); S92.425D Nondisplaced fracture of distal phalanx of left great toe, subsequent encounter for fracture with routine healing; S91.21 Laceration without foreign body of toe with damage to nail
CPT/HCPCS: 73660; 99212; G0463